=== PATIENT | female | born 1985 ===

== ENCOUNTER 2019-11-02 02:41 | Inpatient (IN) | payer BC ==
[2019-11-03] MEDS ORDERED: Sodium Chloride 0.9% 2.5 ML Syringe FLUSH PRN (00:18)
[2019-11-03] MEDS ORDERED: Water For Irrigation,Sterile 1,000 ML Container IRR PRN (00:18)
[2019-11-03] MEDS ORDERED: Methylergonovine 0.2 MG/1 ML Amp IM PRN (00:18)
[2019-11-03] MEDS ORDERED: Sodium Chloride 0.9% 10 ML Syringe FLUSH PRN (00:18)
[2019-11-03] MEDS ORDERED: Misoprostol 200 MCG Tab PO PRN (00:18)
[2019-11-03] MEDS ORDERED: Nalbuphine 10 MG/1 ML Vial IVPUSH PRN (00:18)
[2019-11-03] MEDS ORDERED: Lidocaine 1% 50 ML MDV INJECT PRN (00:18)
[2019-11-03] MEDS ORDERED: Carboprost Tromethamine 250 MCG/1 ML Amp IM PRN (00:18)
[2019-11-03] MEDS ORDERED: Tranexamic Acid 1,000 MG in Sodium Chloride 0.9% 100 ML IV PRN (00:18)
[2019-11-03] MEDS ORDERED: Sodium Chloride 0.9% 10 ML SDV IV PRN (00:18)
[2019-11-03] MEDS ORDERED: Terbutaline 1 MG/ML SDV SUBCUT PRN (00:21)
[2019-11-03] MEDS ORDERED: Misoprostol 25 MCG (1/4 of 100 MCG) Tab VAG PRN (00:21)
[2019-11-03] MEDS ORDERED: Oxytocin/0.9 % Sodium Chloride 30 UNIT/500 ML BAG IV SCH ×2 (00:30)
[2019-11-03] MEDS ORDERED: hydrOXYzine Pamoate 25 MG Cap PO ONE (00:31)
[2019-11-03] MEDS: Butorphanol 1 MG/ML SDV IVPUSH PRN ×3 (02:44→14:01)
[2019-11-03] MEDS: Misoprostol 25 MCG (1/4 of 100 MCG) Tab VAG PRN ×2 (05:47→10:45)
[2019-11-03] MEDS: Lactated Ringers 1,000 ML IV SCH ×4 (10:51→23:34)
[2019-11-03] MEDS ORDERED: fentaNYL 100 MCG/2 ML SDV ONE (15:52)
[2019-11-03] MEDS ORDERED: Ropivacaine HCl/PF 100 ML ONE (15:52)
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
--- NOTE | 2019-11-03 16:15 | PCM.PRNOTE ---
- Free Text/Narrative Note: Anes Note Patient requests epidural for L&D. Sitting position, level L3-L4 midline approach. Sterile technique. Chloraprep scrub to lumbar area. Sterile fenestrated drape applied. Epidural space easily achieved single attempt using PAM technique. PAM at 4 cm. Cath threaded 5 cm with ease. Cath secured at 11 cm at skin using sterille clear adhesive dressing. 1600 Test 3 cc 1.5% lido with epi negative. 1603 Load 10 cc 0.2% ropivicaine with 1 mcg cc fentanyl in slow divided doses. 1609 Pump started with 90 cc same solution. Rate is 8 cc hr with 6 cc q 20 min prn bolus. Lizzy well. Time with patient [id number] Bari Magallanes [employer]
[2019-11-04] MEDS ORDERED: Ibuprofen 400 MG Tab PO PRN (03:24)
[2019-11-04] MEDS ORDERED: Acetaminophen 500 MG Tab PO PRN (03:24)
[2019-11-04] MEDS ORDERED: Bisacodyl 10 MG Supp RECTAL PRN (03:24)
[2019-11-04] MEDS ORDERED: Witch Hazel Medicated Pads 40/Jar TOP PRN (03:24)
[2019-11-04] MEDS ORDERED: Benzocaine/Menthol 20%-0.5% Spray 78 GM Cannister TOP PRN (03:24)
[2019-11-04] MEDS ORDERED: Docusate Sodium 100 MG Cap PO PRN (03:24)
[2019-11-04] MEDS ORDERED: Lanolin 100% Cream 7 GM Tube TOP PRN (03:24)
--- NOTE | 2019-11-04 03:32 | PCM.DEL ---
L & D Note - General Info Date of Service: 11/04/19 - Delivery Note Labor: Spontaneous, Augmented by Oxytocin, Induced by Oxytocin Cervical Ripening Method: Balloon Device, Misoprostil, Oxytocin Delivery Outcome: Livebirth Delivery Mode: Spontaneous Presentation: Vertex Nuchal Cord: None Anesthesia Type: Epidural Amniotic Fluid Description: Clear Episiotomy Type: None Laceration: 1st Degree Suture type: Vicryl Suture size: 3-0 Placenta: Intact, Spontaneous Cord: 3 Vessels : Suctioned, Bulb Syringe - General Info Date of Service: 11/04/19 - Patient Data Weight - Most Recent: 289 lb Med Orders - Current: Current Medications Acetaminophen (Tylenol Extra Strength) 500 mg PO Q4H PRN PRN Reason: Pain Acetaminophen (Tylenol Extra Strength) 1,000 mg PO Q4H PRN PRN Reason: Pain Benzocaine/Menthol (Dermoplast Pain Relief 20%-0.5% [place]) 78 gm TOP ASDIRECTED PRN PRN Reason: Perineal Comfort Measure Bisacodyl (Dulcolax) 10 mg RECTAL ONETIME PRN PRN Reason: Constipation Butorphanol Tartrate (Stadol) 1 mg IVPUSH Q1H PRN PRN Reason: Pain Last Admin: 11/03/19 14:01 Dose: 1 mg Carboprost Tromethamine (Hemabate Ds) 250 mcg IM ASDIRECTED PRN PRN Reason: Post Hemorrhage Docusate Sodium (Colace) 100 mg PO BID PRN PRN Reason: Constipation Emollient Ointment (Lansinoh Hpa) 0 gm TOP ASDIRECTED PRN PRN Reason: Sore Nipples Lactated Ringer's (Ringers, Lactated) 1,000 mls @ 150 mls/hr IV ASDIRECTED RICKY Last Admin: 11/03/19 16:53 Dose: 150 mls/hr Oxytocin/Sodium Chloride (Oxytocin 30 Unit/500 Ml-Ns) 30 unit in 500 mls @ 500 mls/hr IV TITRATE RICKY Tranexamic Acid 1,000 mg/ (Sodium Chloride) 110 mls @ 660 mls/hr IV ONETIME PRN PRN Reason: Bleeding Oxytocin/Sodium Chloride (Oxytocin 30 Unit/500 Ml-Ns) 30 unit in 500 mls @ 2 mls/hr IV TITRATE RICKY; Protocol Last Titration: 11/04/19 02:43 Dose: 500 munits/min, 500 mls/hr Ibuprofen (Motrin) 400 mg PO Q4H PRN PRN Reason: Pain Ibuprofen (Motrin) 800 mg PO Q6H PRN PRN Reason: Pain Lidocaine HCl (Xylocaine 1%) 50 ml INJECT ONETIME PRN PRN Reason: Laceration repair Methylergonovine Maleate (Methergine) 0.2 mg IM ASDIRECTED PRN PRN Reason: Post Hemorrhage Misoprostol (Cytotec) 200 mcg PO ONETIME PRN PRN Reason: Post Hemorrhage Misoprostol (Cytotec) 25 mcg VAG ONETIME PRN PRN Reason: Cervical Ripening Last Admin: 11/03/19 01:06 Dose: 25 mcg Misoprostol (Cytotec) 25 mcg VAG Q4H PRN PRN Reason: Cervical Ripening Last Admin: 11/03/19 10:45 Dose: 25 mcg Nalbuphine HCl (Nubain) 10 mg IVPUSH Q1H PRN PRN Reason: Pain (severe 7-10) Sodium Chloride (Saline Flush) 10 ml FLUSH ASDIRECTED PRN PRN Reason: Keep Vein Open Sodium Chloride (Saline Flush) 2.5 ml FLUSH ASDIRECTED PRN PRN Reason: Keep Vein Open Sodium Chloride (Normal Saline) 10 ml IV ASDIRECTED PRN PRN Reason: IV Use Sterile Water (Sterile Water For Irrigation) 1,000 ml IRR ASDIRECTED PRN PRN Reason: delivery Terbutaline Sulfate (Brethine) 0.25 mg SUBCUT ASDIRECTED PRN PRN Reason: Tacysystole Witch Cami (Tucks) 1 pad TOP ASDIRECTED PRN PRN Reason: comfort care Discontinued Medications Fentanyl (Sublimaze) Confirm Administered Dose 100 mcg .ROUTE .STK-MED ONE Stop: 11/03/19 15:53 Hydroxyzine Pamoate (Vistaril) 50 mg PO ONETIME ONE Stop: 11/03/19 00:32 Last Admin: 11/03/19 01:15 Dose: 50 mg Ropivacaine (Naropin 0.2%) Confirm Administered Dose 100 mls @ as directed .ROUTE .STK-MED ONE Stop: 11/03/19 15:53 Tranexamic Acid (Cyklokapron) Confirm Administered Dose 1,000 mg .ROUTE .STK- MED ONE Stop: 11/04/19 03:04 - Problem List Review Problem List Initiated/Reviewed/Updated: Yes - My Orders Last 24 Hours: My Active Orders 11/03/19 Breakfast Regular Diet [DIET] 11/04/19 03:24 Patient Status [ADT] Routine May Shower [RC] ASDIRECTED Up ad Argenis [RC] ASDIRECTED Vital Signs [RC] PER UNIT ROUTINE Acetaminophen [Tylenol Extra Strength] 1,000 mg PO Q4H PRN Acetaminophen [Tylenol Extra Strength] 500 mg PO Q4H PRN Benzocaine/Menthol [Dermoplast Pain Relief 20%-0.5% [place]] 78 gm TOP ASDIRECTED PRN Docusate Sodium [Colace] 100 mg PO BID PRN Ibuprofen [Motrin] 400 mg PO Q4H PRN Ibuprofen [Motrin] 800 mg PO Q6H PRN Lanolin [Lansinoh HPA] See Dose Instructions TOP ASDIRECTED PRN bisacodyL [Dulcolax] 10 mg RECTAL ONETIME PRN witch Cami [Tucks] 1 pad TOP ASDIRECTED PRN Assess Lochia [WOMSER] Per Unit Routine Assess Uterine Involution [WOMSER] Per Unit Routine Breast Pump [WOMSER] Per Unit Routine Peripheral IV Discontinue [OM.PC] Routine 11/04/19 03:25 Perineal Care [OM.PC] Per Unit Routine Sitz Bath [OM.PC] Per Unit Routine 11/05/19 05:11 HEMOGLOBIN/HEMATOCRIT,HH [HEME] Timed - Assessment Assessment:: 33yo at 40w6d PPD 0 s/p IOL at late term and uncomplicated . - Plan Plan:: Routine care.
[2019-11-04] MEDS: Ibuprofen 800 MG Tab PO PRN ×4 (04:31→23:13)
--- NOTE | 2019-11-04 08:36 | OR ---
SURGEON: Bernardino Pereira MD DATE OF PROCEDURE: 11/04/2019 INDICATION FOR PROCEDURE: A 33-year-old G1, P0, at 40 weeks and 5 days, admitted for induction of labor at late term. was complicated by morbid obesity, otherwise did not have issues. She was GBS negative. She received four doses of Cytotec. She received an epidural for pain control. She was then started on Pitocin with the Cook balloon. She continued to progress and had spontaneous rupture of membranes with clear fluid. She progressed to fully dilated and began pushing with contractions. The baby started to have category 2 tracing while pushing with tachycardia of 170s and early or late decels during contractions. PREOPERATIVE DIAGNOSIS: Kellogg intrauterine at 40 weeks and 5 days. POSTOPERATIVE DIAGNOSIS: Kellogg intrauterine at 40 weeks and 5 days. PROCEDURE PERFORMED: Normal spontaneous vaginal delivery with first-degree perineal laceration. ANESTHESIA: Epidural. ANESTHESIOLOGIST: Dr. Sims. FINDINGS: Viable, male infant. scores of 8 and 9. Weight of 7 pounds 11 ounces. head was asynclitic, and ROP was manually rotated to EL prior to delivery. Estimated blood loss of 300 mL. DESCRIPTION OF PROCEDURE: The patient pushed for about 1.5 hours. The head did not make much descent from +2 station. She was evaluated, head was noted to be asynclitic and in ROP position. The head was manually rotated to EL, and she continued to push with contractions for an additional 40 minutes with good descent. The head delivered in the occiput anterior position, restituted ROT. No nuchal cord was noted. Anterior shoulder delivered easily followed by posterior shoulder and remaining body. The baby was placed on maternal chest and evaluated by awaiting nursery staff. The baby was stimulated and suctioned with bulb suction. Baby was pink, crying, and moving all extremities immediately after delivery. The umbilical cord was clamped and cut after 60 seconds and no longer pulsating. The cord gases were obtained. The placenta was removed with gentle traction on the umbilical cord. It was examined and found to be intact with 3-vessel cord. The cervix was noted to be very edematous and at the introitus. The perineum was examined, and she had a first-degree laceration. The laceration was repaired with 3-0 Vicryl in usual fashion. Hemostasis was confirmed after the procedure. Bimanual massage was performed. The lower uterine segment was slightly boggy with a small amount of clots that were removed. She was given 1 g of TXA since she had moderate bleeding. Fundus was firm and below the umbilicus after fundal massage. She tolerated the procedure well, was given care instructions. SACHA SHARMA /[id number] NEELIMA
--- NOTE | 2019-11-04 08:43 | PCM48HPAN ---
Post Anesthesia Note - EVALUATION WITHIN 48HRS OF ANESTHETIC Vital Signs in Normal Range: Yes Patient Participated in Evaluation: Yes Respiratory Function Stable: Yes Airway Patent: Yes Cardiovascular Function Stable: Yes Hydration Status Stable: Yes Pain Control Satisfactory: Yes Nausea and Vomiting Control Satisfactory: Yes Mental Status Recovered: Yes
[2019-11-04] MEDS: Acetaminophen 500 MG Tab PO PRN (19:51)
[2019-11-05] MEDS: Acetaminophen 500 MG Tab PO PRN ×2 (02:32→07:42)
[2019-11-05] MEDS: Ibuprofen 800 MG Tab PO PRN (06:01)
[2019-11-05 09:10] VITALS: BP 137/77; PULSE 63
--- NOTE | 2019-11-05 10:14 | PCM.PNPP ---
- General Info Date of Service: 11/05/19 Functional Status: Reports: Pain Controlled, Tolerating Diet, Ambulating, Urinating - Review of Systems General: Reports: No Symptoms HEENT: Reports: No Symptoms Pulmonary: Reports: No Symptoms Cardiovascular: Reports: No Symptoms Gastrointestinal: Reports: No Symptoms Genitourinary: Reports: No Symptoms Musculoskeletal: Reports: No Symptoms Skin: Reports: No Symptoms Neurological: Reports: No Symptoms Psychiatric: Reports: No Symptoms - General Info Date of Service: 11/05/19 - Patient Data Vital Signs - Most Recent: Last Vital Signs Temp 36.2 C 11/05/19 07:37 Pulse 63 11/05/19 07:37 Resp 18 11/05/19 07:37 BP 137/77 11/05/19 07:37 Pulse Ox 99 11/05/19 07:37 Weight - Most Recent: 131.088 kg Lab Results - Last 24 Hours: Laboratory Results - last 24 hr 11/03/19 11/05/19 Range/Units 00:00 06:00 Hgb 11.2 L (12.0-16.0) g/dL Hct 34.1 L (36.0-46.0) % RPR Non-Reac (Non-Reac) Med Orders - Current: Current Medications Acetaminophen (Tylenol Extra Strength) 500 mg PO Q4H PRN PRN Reason: Pain Acetaminophen (Tylenol Extra Strength) 1,000 mg PO Q4H PRN PRN Reason: Pain Last Admin: 11/05/19 07:42 Dose: 1,000 mg Benzocaine/Menthol (Dermoplast Pain Relief 20%-0.5% [place]) 78 gm TOP ASDIRECTED PRN PRN Reason: Perineal Comfort Measure Last Admin: 11/04/19 06:15 Dose: 1 canister Bisacodyl (Dulcolax) 10 mg RECTAL ONETIME PRN PRN Reason: Constipation Butorphanol Tartrate (Stadol) 1 mg IVPUSH Q1H PRN PRN Reason: Pain Last Admin: 11/03/19 14:01 Dose: 1 mg Carboprost Tromethamine (Hemabate Ds) 250 mcg IM ASDIRECTED PRN PRN Reason: Post Hemorrhage Docusate Sodium (Colace) 100 mg PO BID PRN PRN Reason: Constipation Last Admin: 11/04/19 21:20 Dose: 100 mg Emollient Ointment (Lansinoh Hpa) 0 gm TOP ASDIRECTED PRN PRN Reason: Sore Nipples Lactated Ringer's (Ringers, Lactated) 1,000 mls @ 150 mls/hr IV ASDIRECTED RICKY Last Admin: 11/03/19 23:34 Dose: 150 mls/hr Oxytocin/Sodium Chloride (Oxytocin 30 Unit/500 Ml-Ns) 30 unit in 500 mls @ 500 mls/hr IV TITRATE RICKY Tranexamic Acid 1,000 mg/ (Sodium Chloride) 110 mls @ 660 mls/hr IV ONETIME PRN PRN Reason: Bleeding Last Admin: 11/04/19 03:06 Dose: 660 mls/hr Oxytocin/Sodium Chloride (Oxytocin 30 Unit/500 Ml-Ns) 30 unit in 500 mls @ 2 mls/hr IV TITRATE RICKY; Protocol Last Titration: 11/04/19 02:43 Dose: 500 munits/min, 500 mls/hr Ibuprofen (Motrin) 400 mg PO Q4H PRN PRN Reason: Pain Ibuprofen (Motrin) 800 mg PO Q6H PRN PRN Reason: Pain Last Admin: 11/05/19 06:01 Dose: 800 mg Lidocaine HCl (Xylocaine 1%) 50 ml INJECT ONETIME PRN PRN Reason: Laceration repair Methylergonovine Maleate (Methergine) 0.2 mg IM ASDIRECTED PRN PRN Reason: Post Hemorrhage Misoprostol (Cytotec) 200 mcg PO ONETIME PRN PRN Reason: Post Hemorrhage Misoprostol (Cytotec) 25 mcg VAG ONETIME PRN PRN Reason: Cervical Ripening Last Admin: 11/03/19 01:06 Dose: 25 mcg Misoprostol (Cytotec) 25 mcg VAG Q4H PRN PRN Reason: Cervical Ripening Last Admin: 11/03/19 10:45 Dose: 25 mcg Nalbuphine HCl (Nubain) 10 mg IVPUSH Q1H PRN PRN Reason: Pain (severe 7-10) Sodium Chloride (Saline Flush) 10 ml FLUSH ASDIRECTED PRN PRN Reason: Keep Vein Open Sodium Chloride (Saline Flush) 2.5 ml FLUSH ASDIRECTED PRN PRN Reason: Keep Vein Open Sodium Chloride (Normal Saline) 10 ml IV ASDIRECTED PRN PRN Reason: IV Use Sterile Water (Sterile Water For Irrigation) 1,000 ml IRR ASDIRECTED PRN PRN Reason: delivery Terbutaline Sulfate (Brethine) 0.25 mg SUBCUT ASDIRECTED PRN PRN Reason: Tacysystole Witch Jeanine (Tucks) 1 pad TOP ASDIRECTED PRN PRN Reason: comfort care Last Admin: 11/04/19 06:15 Dose: 1 container Discontinued Medications Fentanyl (Sublimaze) Confirm Administered Dose 100 mcg .ROUTE .STK-MED ONE Stop: 11/03/19 15:53 Hydroxyzine Pamoate (Vistaril) 50 mg PO ONETIME ONE Stop: 11/03/19 00:32 Last Admin: 11/03/19 01:15 Dose: 50 mg Ropivacaine (Naropin 0.2%) Confirm Administered Dose 100 mls @ as directed .ROUTE .STK-MED ONE Stop: 11/03/19 15:53 Tranexamic Acid (Cyklokapron) Confirm Administered Dose 1,000 mg .ROUTE .STK- MED ONE Stop: 11/04/19 03:04 - Interaction Infant Disposition, : to Nursery Infant Feeding: Attempted ; Nursed Fair/Poor Support Person: Mother - Recovery Exam Fundal Tone: Firm Fundal Level: 1 Fingerbreadths Below Umbilicus Fundal Placement: Left Lochia Amount: Small Lochia Color: Rubra/Red Perineum Description: Intact, Minimal Bruising/Swelling Episiotomy/Laceration: Approximated Bladder Status: Voiding Urinary Elimination: Voided - Exam General: Alert, Oriented Neck: Supple Lungs: Normal Respiratory Effort GI/Abdominal Exam: Soft, Non-Tender, No Distention Extremities: No: No Pedal Edema (1+ bilateral) Skin: Warm, Dry, Intact Neurological: No New Focal Deficit Psy/Mental Status: Alert, Normal Affect, Normal Mood - Problem List & Annotations (1) Vaginal delivery SNOMED Code(s): 002027418 Code(s): O80 - ENCOUNTER FOR FULL-TERM UNCOMPLICATED DELIVERY Status: Acute Current Visit: Yes - Problem List Review Problem List Initiated/Reviewed/Updated: Yes - Assessment Assessment:: 33yo PPD#1 after , stable minimal lochia, breast and bottle feeding. Minimal lochia, but significant cramping with . - Plan Plan:: Dismiss to home, discussed normal cramping after , importance of regular intervals of nursing to stimulate milk supply can premedicate with ibuprofen prior to . Discharge instructions reviewed.
== END 2019-11-05 12:20 | disposition home or self-care (01) | DRG 560 ==
LOC: MW.OB 02:41 → OBSVTOIN 11-04 02:41 → MW.OB 11-04 11:10
PROVIDERS: ADMIT Obstetrics & Gynecology; ATTEND Obstetrics & Gynecology
PROC: 10E0XZZ Delivery of Products of Conception, External Approach (ICD-10-PCS; principal; 2019-11-04)
PROC: 0HQ9XZZ Repair Perineum Skin, External Approach (ICD-10-PCS; 2019-11-04)
PROC: 3E0P7VZ Introduction of Hormone into Female Reproductive, Via Natural or Artificial Opening (ICD-10-PCS; 2019-11-04)
PROC: 3E0R3BZ Introduction of Anesthetic Agent into Spinal Canal, Percutaneous Approach (ICD-10-PCS; 2019-11-04)
PROC: 00HU33Z Insertion of Infusion Device into Spinal Canal, Percutaneous Approach (ICD-10-PCS; 2019-11-04)
DX: O48.0 Post-term pregnancy (principal); Z37.0 Single live birth; Z3A.40 40 weeks gestation of pregnancy; O70.0 First degree perineal laceration during delivery; O99.214 Obesity complicating childbirth; E66.01 Morbid (severe) obesity due to excess calories
CPT/HCPCS: 01967; 36415; 51702; 59025; 59409; 82803; 85014; 85018; 85027; 86592; 86593; 86850; 86900; 86901; A9270-GY; J0595; J2590; J2795; J3010; J7050; J7120